=== PATIENT | female | born 1995 | race Hispanic/Latino ===

== ENCOUNTER 2017-07-14 18:38 | Emergency (ER) | payer OTHER ==
[2017-07-14 19:31] LABS: Bilirubin Negative (Negative); Blood, Urine Negative (Negative); Clarity CLEAR (Clear); Glucose, Urine (Dipstick) Negative (Negative); Leukocyte Negative (Negative); Nitrite Negative (Negative); Protein, Urine (Dipstick) Negative (Neg-Trace); Specific Gravity, Urine 1.006 (1.002-1.036); Urobilinogen 0.2 mg/dL (0.2-1.0)
[2017-07-14 19:37] LABS: #Basophils 0.1 thou/uL (0.0-0.2); #Eosinphils 0.1 thou/uL (0.0-0.7); #Lymphocytes 3.6 thou/uL (1.20-3.40); #Monocytes 0.5 thou/uL (0.11-0.59); #Neutrophils 4.6 thou/uL (1.40-6.50); %Basophils 0.8 % (0.0-1.0); %Eosinophils 1.3 % (0.0-10.0); %Lymphocytes 40.4 % (21.0-51.0); %Neutrophils 51.5 % (42.0-75.0); Mean Corpuscular HGB CONC 34.3 g/dL (32.0-36.0); Mean Corpuscular Hemoglobin 31.5 pg (27.0-31.0); Mean Corpuscular Volume 91.8 fl (81.0-99.0); Mean Platelet Volume 6.8 fL (7.4-10.4); Platelet Count 289 thou/uL (130-400); Red Blood Cell (RBC) Count 4.43 mill/uL (4.20-5.40)
--- NOTE | 2017-07-14 22:35 | ULT ---
PELVIC ULTRASOUND: 07/14/17 HISTORY: Vaginal bleeding. Real time images of the pelvis were obtained endovaginally. These show an intrauterine gestational sa c and pole. The crown-rump length measurements are 5.8 mm corresponding to 6 weeks, 3 days. No heart activity is seen. The right and left adnexa are unremarkable in appearance. DOPPLER EVALUATION WITH SPECTRAL ANALYSIS: Normal flow is shown to both ovaries. Minimal free fluid is seen in the cul-de-sac. IMPRESSION: Intrauterine gestational sac and pole. [place]-rump length measurements would correspond to 6 wee ks, 3 days. Typically at this stage, a heart activity would be able to be visualized on transva ginal ultrasound. Findings are very suspicious for demise. POS: MERCEDES
== END 2017-07-14 23:17 | disposition home or self-care (01) ==
LOC: ERS 18:38
DX: O20.9 Hemorrhage in early pregnancy, unspecified (principal); Z3A.09 9 weeks gestation of pregnancy
CPT/HCPCS: 36415; 76856; 81003; 84702; 85025; 86900; 86901

== ENCOUNTER 2017-07-18 08:26 | Emergency (ER) | payer OTHER, SELFPAY ==
[2017-07-18 09:01] LABS: #Basophils 0.1 thou/uL (0.0-0.2); #Eosinphils 0.1 thou/uL (0.0-0.7); #Lymphocytes 1.8 thou/uL (1.20-3.40); #Monocytes 0.4 thou/uL (0.11-0.59); #Neutrophils 4.4 thou/uL (1.40-6.50); %Basophils 0.8 % (0.0-1.0); %Eosinophils 1.1 % (0.0-10.0); %Lymphocytes 27.2 % (21.0-51.0); %Monocytes 5.9 % (0.0-10.0); %Neutrophils 65.1 % (42.0-75.0); Hemoglobin 13.6 g/dL (12.0-16.0); Mean Corpuscular HGB CONC 33.8 g/dL (32.0-36.0); Mean Corpuscular Volume 91.7 fl (81.0-99.0); Mean Platelet Volume 6.9 fL (7.4-10.4); Platelet Count 272 thou/uL (130-400); RBC Distribution Width 11.1 % (11.5-14.5); Red Blood Cell (RBC) Count 4.39 mill/uL (4.20-5.40); White Blood Cell (WBC) Count 6.8 thou/uL (4.8-10.8)
--- NOTE | 2017-07-18 10:10 | ULT ---
PELVIC ULTRASOUND WITH DOPPLER: (Transabdominal, transvaginal, galindo scale, color flow, and spectral Doppler) HISTORY: Vaginal bleeding. FINDINGS: The uterus measures 9 x 4.4 x 4.8 cm without evidence of focal mass or intrauterine gestational sac. The right ovary measures 9.5 x 1.5 x 1.9 cm and demonstrates flow. The left ovary is not visualized . No adnexal masses seen on either side. There is a small amount of free fluid in the cul-de-sac. IMPRESSION: No sonographic evidence of intrauterine gestation. POS: LIZANDRO
== END 2017-07-18 10:29 | disposition home or self-care (01) ==
LOC: ERS 08:26
DX: O03.4 Incomplete spontaneous abortion without complication (principal)
CPT/HCPCS: 36415; 76856; 84702; 85025

== ENCOUNTER 2018-02-19 16:12 | Outpatient (CLI) | payer MEDICAID | END 2018-02-19 16:13 | disposition home or self-care (01) | LOC: BICRAD 16:12 | PROVIDERS: ATTEND Family Medicine | DX: R76.12 Nonspecific reaction to cell mediated immunity measurement of gamma interferon antigen response without active tuberculosis (principal) | CPT/HCPCS: 71046 ==

== ENCOUNTER 2018-08-20 20:00 | Inpatient (IN) | payer OTHER ==
[2018-08-20] MEDS ORDERED: Ondansetron PF 4 MG/2 ML Vial IVP PRN (23:29)
[2018-08-20] MEDS ORDERED: Carboprost 250 MCG/ML AMP IM PRN (23:29)
[2018-08-20] MEDS ORDERED: Misoprostol 200 MCG TAB PR PRN (23:29)
[2018-08-20] MEDS ORDERED: Lidocaine 1% (PF) 30 ML VIAL SC PRN (23:29)
[2018-08-20] MEDS ORDERED: Ibuprofen 800 MG TAB PO PRN (23:29)
[2018-08-20] MEDS ORDERED: NS w/ Oxytocin 10 units 500 ML IV SCH ×2 (23:29)
[2018-08-20] MEDS ORDERED: HYDROcodone/Acetaminophen 5/325 mg Tablet PO PRN (23:29)
[2018-08-20] MEDS ORDERED: Diphenoxylate HCl/Atropine Tablet PO PRN (23:29)
[2018-08-20 23:50] VITALS: BMI 35.2
[2018-08-21] MEDS: Lactated Ringer's 1,000 ML IV SCH ×2 (00:13→05:14)
[2018-08-21 00:31] LABS: Hemoglobin 11.2 g/dL (12.0-16.0); Mean Corpuscular HGB CONC 33.3 g/dL (32.0-36.0); Mean Corpuscular Hemoglobin 29.9 pg (27.0-31.0); Mean Corpuscular Volume 89.6 fL (78.0-98.0); Mean Platelet Volume 8.4 fL (7.4-10.4); Platelet Count 212 thou/uL (130-400); RBC Distribution Width 11.7 % (11.5-14.5); Red Blood Cell (RBC) Count 3.75 mill/uL (4.20-5.40); White Blood Cell (WBC) Count 11.5 thou/uL (4.8-10.8)
[2018-08-21 01:12] LABS: Syphilis Antibody Nonreactive (Nonreactive); Syphilis Antibody Index 0.05 S/CO (<1.00 Non-Reactive)
[2018-08-21 01:13] LABS: HBSAg Index 0.32 S/CO (0-0.99); Hep B Surf Ag Non-Reactive S/CO (NonReactive)
[2018-08-21] MEDS ORDERED: diphenhydrAMINE 50 MG/ML VIAL IVP SCH (01:30)
[2018-08-21] MEDS: Butorphanol Tartrate 1 MG/ML VIAL SLOW IVP PRN ×2 (09:10→10:16)
[2018-08-21] MEDS: Misoprostol 100 MCG TAB VAG SCH (09:12)
[2018-08-21] MEDS: NS / Oxytocin 40 units/1000ml 1,000 ML IV PRN ×2 (12:10→13:17)
[2018-08-21] MEDS ORDERED: Ondansetron PF 4 MG/2 ML Vial IVP PRN (13:31)
[2018-08-21] MEDS ORDERED: Milk Of Magnesia 30 ML UDCUP PO PRN (13:31)
[2018-08-21] MEDS ORDERED: NS / Oxytocin 40 units/1000ml 1,000 ML IV SCH (13:31)
[2018-08-21] MEDS ORDERED: Bisacodyl 10 MG SUPP PR PRN (13:31)
[2018-08-21] MEDS ORDERED: Preparation H Ointment 28 GM TUBE PR PRN (13:31)
[2018-08-21] MEDS ORDERED: HYDROcodone/Acetaminophen 5/325 mg Tablet PO PRN (13:31)
[2018-08-21] MEDS ORDERED: Benzocaine/Menthol 20-0.5% 60 ML CAN TOP PRN (13:31)
[2018-08-21] MEDS ORDERED: Lanolin Ointment 7 GM TUBE TOP PRN (13:31)
[2018-08-21] MEDS: Ferrous Sulfate 325 MG TAB PO SCH (14:57)
[2018-08-21] MEDS: Ibuprofen 800 MG TAB PO SCH ×2 (15:16→21:42)
[2018-08-21] MEDS: Docusate Calcium (SURFAK) 240 MG CAP PO SCH (19:48)
[2018-08-21] MEDS: HYDROcodone/Acetaminophen 5/325 mg Tablet PO PRN (19:48)
[2018-08-22] MEDS: HYDROcodone/Acetaminophen 5/325 mg Tablet PO PRN (02:16)
[2018-08-22] MEDS: Ibuprofen 800 MG TAB PO SCH ×2 (05:06→13:46)
[2018-08-22 06:48] LABS: Hemoglobin 10.3 g/dL (12.0-16.0); Mean Corpuscular Hemoglobin 30.5 pg (27.0-31.0); Mean Corpuscular Volume 92.3 fL (78.0-98.0); Mean Platelet Volume 7.9 fL (7.4-10.4); Platelet Count 191 thou/uL (130-400); Red Blood Cell (RBC) Count 3.39 mill/uL (4.20-5.40); White Blood Cell (WBC) Count 9.4 thou/uL (4.8-10.8)
[2018-08-22] MEDS ORDERED: Prenatal Vitamin 1 TAB PO SCH (09:00)
[2018-08-22] MEDS: Docusate Calcium (SURFAK) 240 MG CAP PO SCH (09:17)
[2018-08-22] MEDS: Ferrous Sulfate 325 MG TAB PO SCH (09:18)
[2018-08-22 12:15] VITALS: BP 135/78; TEMP 98.1
[2018-08-22] MEDS ORDERED: Oxymetazoline HCl 0.05% ( 15 ML ) NASAL PRN (12:31)
[2018-08-22] MEDS ORDERED: Loratadine 10 MG TAB PO SCH (12:45)
[2018-08-23] MEDS ORDERED: Loratadine 10 MG TAB PO SCH (09:00)
== END 2018-08-22 18:00 | disposition home or self-care (01) | DRG 807 ==
LOC: L&D 22:53 → 3SW 08-21 14:46
PROVIDERS: ADMIT Family Medicine; ATTEND Family Medicine
PROC: 10907ZC Drainage of Amniotic Fluid, Therapeutic from Products of Conception, Via Natural or Artificial Opening (ICD-10-PCS; principal; 2018-08-20)
PROC: 10E0XZZ Delivery of Products of Conception, External Approach (ICD-10-PCS; 2018-08-20)
PROC: 0KQM0ZZ Repair Perineum Muscle, Open Approach (ICD-10-PCS; 2018-08-20)
PROC: 3E033VJ Introduction of Other Hormone into Peripheral Vein, Percutaneous Approach (ICD-10-PCS; 2018-08-20)
DX: O24.420 Gestational diabetes mellitus in childbirth, diet controlled (principal); Z37.0 Single live birth; Z3A.38 38 weeks gestation of pregnancy; O70.1 Second degree perineal laceration during delivery
CPT/HCPCS: 36415; 36416; 85027; 86780; 86850; 86900; 86901; 87340; J0595; J1200; J2001